=== PATIENT | female | born 1945 | race Caucasian/White ===

== ENCOUNTER 2016-07-08 08:27 | Outpatient (CLI) | payer MEDICARE | END 2016-07-08 08:30 | LOC: LAB 08:27 | PROVIDERS: ATTEND Family Medicine | DX: E03.9 Hypothyroidism, unspecified (principal) | CPT/HCPCS: 36415; 84443 ==

== ENCOUNTER 2016-07-26 09:20 | Outpatient (CLI) | payer MEDICARE ==
--- NOTE | 2016-07-26 12:54 | OP Clinic Progress Note ---
REFERRING PHYSICIAN: Dr. Florina Fan Dear Dr. Fan: REASON FOR VISIT: I had the pleasure of seeing Mercedes Diaz in follow up. She is not having significant discomfort. She still has some joint pain and stiffness and a rash on occasion. Otherwise, no fever, chills, or sweats. She denies dry eyes or dry mouth. She has had no rashes. No numbness or tingling. PAST MEDICAL HISTORY: 1. Myelodysplasia. 2. Neutropenia. 3. Anemia. 4. Chronic low back pain. 5. Hypothyroidism. PRIMARY CARE PROVIDERS: She presently is under the care of: 1. Dr. Dannie Mays. 2. Dr. Raghav Us. 3. Dr. Roger Summers. PRESENT MEDICATIONS: Levothyroxine 75 mcg daily. ALLERGIES: Allergies are again reviewed: 1. Penicillin. 2. Sulfa drugs. 3. Erythromycin. 4. Vibramycin. 5. Tramadol. 6. Cefuroxime. 7. Kae. 8. Oggjo-Yr-Zcyd. 9. Alpha-lipoic acid. 10. Aspirin. SOCIAL HISTORY AND FAMILY HISTORY: Social history and family history are unchanged. PHYSICAL EXAMINATION: GENERAL: She looks well and in no distress. VITAL SIGNS: T: 97.3, R: 12, heart rate of 70, BP: 170/70. HEENT: No parotid or submandibular swelling. No stomatitis or glossitis. No cervical nodes. LUNGS: Clear bilaterally. HEART: Regular rhythm. ABDOMEN: Soft and nontender. VASCULAR: No edema or cyanosis. JOINTS: DIPs and PIPs with hard bony swelling. No synovitis at the MCPs, wrists, or elbows. DIAGNOSTIC STUDIES: Review of her labs show that DONIS came back at 1:640 in a speckled pattern. BALJEET /IgG over 150. SS-A antibody over 240. SS-B antibody at 30. IgM rheumatoid factor of 41. IgA rheumatoid factor of 208. CCP antibody and MCV antibody negative. Thyroglobulin antibody is equivocal. Anti-cardiolipin antibodies were negative. IMPRESSION AND PLAN: I suspect this lady has Sjogren's syndrome. I do not have all the data. If there is a concern that her hemological abnormalities are autoimmune, we could consider a steroid trial. I also will be keeping Dr. Mays, Dr. Us, and Dr. Summers involved. Thank you very much for the opportunity to care for your patient. Best regards, cc: Dr. Mita Summers Enclosure: [facility]
== END 2016-07-26 09:21 ==
LOC: RHEU 09:20
PROVIDERS: ATTEND Internal Medicine
DX: M35.00 Sjogren syndrome, unspecified (principal)
CPT/HCPCS: 99214; G0463

== ENCOUNTER → 2017-06-13 | Outpatient (CLI) | payer MEDICARE | LOC: LAB 07:35 | PROVIDERS: ATTEND Family Medicine | DX: E03.9 Hypothyroidism, unspecified (principal) | CPT/HCPCS: 36415; 84443 ==

== ENCOUNTER 2018-05-14 07:49 | Outpatient (CLI) | payer MEDICARE | END 2018-05-14 07:50 | LOC: LAB 07:49 | PROVIDERS: ATTEND Family Medicine | DX: E03.9 Hypothyroidism, unspecified (principal) | CPT/HCPCS: 36415; 84443 ==

== ENCOUNTER 2018-08-03 08:14 | Outpatient (CLI) | payer MEDICARE | END 2018-08-03 08:16 | LOC: LAB 08:14 | PROVIDERS: ATTEND Orthopaedic Surgery | DX: Z79.01 Long term (current) use of anticoagulants (principal); Z96.649 Presence of unspecified artificial hip joint; Z96.659 Presence of unspecified artificial knee joint | CPT/HCPCS: 36415; 85610 ==

== ENCOUNTER 2018-08-06 07:57 | Outpatient (CLI) | payer MEDICARE | END 2018-08-06 08:00 | LOC: LAB 07:57 | PROVIDERS: ATTEND Orthopaedic Surgery | DX: Z79.01 Long term (current) use of anticoagulants (principal); Z96.649 Presence of unspecified artificial hip joint; Z96.659 Presence of unspecified artificial knee joint | CPT/HCPCS: 36415; 85610 ==

== ENCOUNTER 2018-08-10 07:59 | Outpatient (CLI) | payer MEDICARE | END 2018-08-10 08:02 | LOC: LAB 07:59 | PROVIDERS: ATTEND Orthopaedic Surgery | DX: Z79.01 Long term (current) use of anticoagulants (principal); Z96.649 Presence of unspecified artificial hip joint; Z96.659 Presence of unspecified artificial knee joint | CPT/HCPCS: 36415; 85610 ==

== ENCOUNTER 2018-08-13 07:47 | Outpatient (CLI) | payer MEDICARE | END 2018-08-13 08:00 | LOC: LAB 07:47 | PROVIDERS: ATTEND Orthopaedic Surgery | DX: Z79.01 Long term (current) use of anticoagulants (principal); Z96.649 Presence of unspecified artificial hip joint; Z96.659 Presence of unspecified artificial knee joint | CPT/HCPCS: 36415; 85610 ==

== ENCOUNTER 2018-08-17 07:42 | Outpatient (CLI) | payer MEDICARE | END 2018-08-17 07:44 | LOC: LAB 07:42 | PROVIDERS: ATTEND Orthopaedic Surgery | DX: Z79.01 Long term (current) use of anticoagulants (principal); Z96.649 Presence of unspecified artificial hip joint; Z96.659 Presence of unspecified artificial knee joint | CPT/HCPCS: 36415; 85610 ==

== ENCOUNTER 2018-08-20 07:39 | Outpatient (CLI) | payer MEDICARE | END 2018-08-20 07:40 | LOC: LAB 07:39 | PROVIDERS: ATTEND Orthopaedic Surgery | DX: Z79.01 Long term (current) use of anticoagulants (principal); Z96.649 Presence of unspecified artificial hip joint; Z96.659 Presence of unspecified artificial knee joint | CPT/HCPCS: 36415; 85610 ==

== ENCOUNTER 2018-08-24 07:36 | Outpatient (CLI) | payer MEDICARE | END 2018-08-24 07:38 | LOC: LAB 07:36 | PROVIDERS: ATTEND Orthopaedic Surgery | DX: Z79.01 Long term (current) use of anticoagulants (principal); Z96.649 Presence of unspecified artificial hip joint; Z96.659 Presence of unspecified artificial knee joint | CPT/HCPCS: 36415; 85610 ==

== ENCOUNTER 2018-08-27 07:33 | Outpatient (CLI) | payer MEDICARE | END 2018-08-27 07:35 | LOC: LAB 07:33 | PROVIDERS: ATTEND Orthopaedic Surgery | DX: Z79.01 Long term (current) use of anticoagulants (principal); Z96.649 Presence of unspecified artificial hip joint; Z96.659 Presence of unspecified artificial knee joint | CPT/HCPCS: 36415; 85610 ==

== ENCOUNTER 2018-08-31 07:33 | Outpatient (CLI) | payer MEDICARE | END 2018-08-31 07:35 | LOC: LAB 07:33 | PROVIDERS: ATTEND Orthopaedic Surgery | DX: Z79.01 Long term (current) use of anticoagulants (principal); Z96.649 Presence of unspecified artificial hip joint; Z96.659 Presence of unspecified artificial knee joint | CPT/HCPCS: 36415; 85610 ==

== ENCOUNTER 2019-03-29 07:55 | Outpatient (CLI) | payer MEDICARE ==
[2019-03-29 08:20] LABS: BASOPHILS % 0.3 % (0.0-1.5); NEUTROPHILS # 0.9 # k/uL (1.4-7.7)
[2019-03-29 09:30] LABS: eGFR (Non-African) > 60
== END 2019-03-29 08:00 ==
LOC: LAB 07:55
PROVIDERS: ATTEND Family Medicine
DX: D59.1 Other autoimmune hemolytic anemias (principal); E03.9 Hypothyroidism, unspecified
CPT/HCPCS: 36415; 80053; 82607; 84443; 85025; 85610

== ENCOUNTER 2019-05-25 08:00 | Outpatient (CLI) | payer MEDICARE ==
[2019-05-25 08:39] LABS: BASOPHILS % 0.3 % (0.0-1.5); NEUTROPHILS # 3.5 # k/uL (1.4-7.7)
== END 2019-05-25 08:05 ==
LOC: LAB 08:00
PROVIDERS: ATTEND Family Medicine
DX: D59.1 Other autoimmune hemolytic anemias (principal); E03.9 Hypothyroidism, unspecified
CPT/HCPCS: 36415; 82607; 84443; 85025